=== PATIENT | male | born 1980 | race Caucasian/White ===

== ENCOUNTER 2019-12-19 15:08 | Outpatient (REF) | payer MEDICARE, MEDICAID, SELFPAY | END 2019-12-19 15:09 | disposition home or self-care (01) | LOC: HO.LAB 15:08 | PROVIDERS: Visit Provider Internal Medicine | DX: Z20.828 Contact with and (suspected) exposure to other viral communicable diseases (principal) | CPT/HCPCS: C9803; U0003 ==

== ENCOUNTER 2021-01-20 10:26 | Outpatient (REF) | payer MEDICARE, MEDICAID, SELFPAY ==
[2021-01-20 11:12] LABS: MANUAL DIFF FLAG NO
[2021-01-20 11:47] LABS: Basophils Percent Auto 0.3 % (0-2); Eosinophils Absolute Auto 0.1 X10*3/uL (0.0-0.4); Eosinophils Percent Auto 1.4 % (0-4); Hematocrit 45.8 % (42.0-52.0); Hemoglobin 15.2 g/dl (14.0-18.0); Imm Gran Abs Auto 0.03 X10*3/uL (0.00-0.03); Imm Gran Pct Auto 0.5 % (0.0-0.4); Lymphocytes Absolute Auto 2.1 X10*3/uL (1.2-4.9); Lymphocytes Percent Auto 35.9 % (20-40); Mean Corpuscular HGB Conc 33.2 g/dl (31.0-36.0); Mean Corpuscular Hemoglobin 29.8 pg (27.0-33.0); Mean Corpuscular Volume 89.8 fL (80.0-98.0); Mean Platelet Volume 9.4 fL (9.4-12.4); Monocytes Absolute Auto 0.5 X10*3/uL (0.1-1.2); Monocytes Percent Auto 8.9 % (2-11); Neutrophils Absolute Auto 3.1 x10*3/uL (2.0-8.3); Platelet Count 275 X10*3/uL (160-400); Red Cell Distribution Width 13.1 % (11.0-16.0); White Blood Count 5.8 X10*3/uL (4.8-10.8)
[2021-01-20 11:53] LABS: Appearance Urine CLEAR; Color Urine YELLOW; Glucose Urine UA NEG (NEG); Leukocyte Esterase Urine NEG (NEG); Nitrite Urine NEG (NEG); PH 8.5 (5.0-8.0); Specific Gravity - Urine 1.015 (1.005-1.025); Urine Blood NEG (NEG); Urine Ketones NEG (NEG); Urine Protein NEG (NEG-TRACE)
[2021-01-20 12:08] LABS: Valproate 67.9 mcg/mL (50.0-100.0)
[2021-01-20 12:21] LABS: Alanine Aminotransferase 30 U/L (0-40); Albumin Level 4.2 g/dL (3.5-5.0); Alkaline Phosphatase 59 U/L (39-117); Anion Gap 12 (12-20); Aspartate Amino Transferase 24 U/L (5-37); Bilirubin Total 0.4 mg/dL (0.0-1.0); Blood Urea Nitrogen 10 mg/dL (9-16); Calcium 9.7 mg/dL (8.4-10.2); Carbon Dioxide 32 mmol/L (22-29); Chloride 101 mmol/L (96-108); Cholesterol 219 mg/dL; Estimated Glomerular Filt Rate > 60; Glucose Random 81 mg/dL (60-115); HDL Cholesterol 35 mg/dL; LDL Cholesterol Calculated 142 mg/dl; Potassium 5.7 mmol/L (3.3-5.1); Sodium 139 mmol/L (135-145); Total Protein 7.4 g/dL (6.5-8.0); Triglycerides 212 mg/dL
[2021-01-20 12:26] LABS: Free T4 (Free Thyroxine) 0.92 ng/dL (0.71-1.85); Thyroid Stimulating Hormone 2.07 uIU/mL (0.32-4.0); Vitamin D 25-OH Total 24.3 ng/mL (>30)
[2021-01-20 12:28] LABS: Estimated Average Glucose 103 mg/dL; Hemoglobin A1C 148.6286 umol/L; Hemoglobin A1c % 5.2 %
== END 2021-01-20 10:27 | disposition home or self-care (01) ==
LOC: HO.LAB 10:26
PROVIDERS: PCP Internal Medicine; Visit Provider Internal Medicine
DX: E66.09 Other obesity due to excess calories (principal); I49.01 Ventricular fibrillation; E78.00 Pure hypercholesterolemia, unspecified; R73.01 Impaired fasting glucose; G93.1 Anoxic brain damage, not elsewhere classified; Z86.74 Personal history of sudden cardiac arrest; Z68.35 Body mass index [BMI] 35.0-35.9, adult
CPT/HCPCS: 36415; 80053; 80061; 80164; 81003; 82306; 83036; 84439; 84443; 85025

== ENCOUNTER 2021-02-02 11:41 | Outpatient (REF) | payer MEDICARE, MEDICAID, SELFPAY | END 2021-02-02 11:42 | disposition home or self-care (01) | LOC: HO.HMGCLDS 11:41 | PROVIDERS: Visit Provider Internal Medicine | DX: Z20.822 Contact with and (suspected) exposure to COVID-19 (principal) | CPT/HCPCS: C9803; U0003; U0005 ==

== ENCOUNTER 2021-07-07 09:06 | Outpatient (REF) | payer MEDICARE, MEDICAID, SELFPAY ==
[2021-07-07 09:44] LABS: MANUAL DIFF FLAG NO
[2021-07-07 10:06] LABS: Basophils Percent Auto 0.6 % (0-2); Eosinophils Absolute Auto 0.1 X10*3/uL (0.0-0.4); Eosinophils Percent Auto 1.2 % (0-4); Hemoglobin 13.9 g/dl (14.0-18.0); Imm Gran Abs Auto 0.02 X10*3/uL (0.00-0.03); Imm Gran Pct Auto 0.4 % (0.0-0.4); Lymphocytes Absolute Auto 1.8 X10*3/uL (1.2-4.9); Mean Corpuscular HGB Conc 33.1 g/dl (31.0-36.0); Mean Corpuscular Hemoglobin 29.5 pg (27.0-33.0); Mean Corpuscular Volume 89.2 fL (80.0-98.0); Mean Platelet Volume 9.7 fL (9.4-12.4); Monocytes Absolute Auto 0.5 X10*3/uL (0.1-1.2); Monocytes Percent Auto 9.7 % (2-11); Neutrophils Absolute Auto 2.6 x10*3/uL (2.0-8.3); Neutrophils Percent Auto 52.1 % (45-73); Platelet Count 264 X10*3/uL (160-400); Red Blood Count 4.71 X10*6/uL (4.60-5.80); Red Cell Distribution Width 13.2 % (11.0-16.0); White Blood Count 5.1 X10*3/uL (4.8-10.8)
[2021-07-07 10:36] LABS: Estimated Average Glucose 105 mg/dL; Hemoglobin A1C 129.2779 umol/L; Hemoglobin A1c % 5.3 %
[2021-07-07 10:45] LABS: Alanine Aminotransferase 28 U/L (0-40); Alkaline Phosphatase 55 U/L (39-117); Anion Gap 12 (12-20); Aspartate Amino Transferase 21 U/L (5-37); Bilirubin Total 0.6 mg/dL (0.0-1.0); Blood Urea Nitrogen 8 mg/dL (9-16); Calcium 9.4 mg/dL (8.4-10.2); Carbon Dioxide 30 mmol/L (22-29); Chloride 102 mmol/L (96-108); Cholesterol 196 mg/dL; Estimated Glomerular Filt Rate > 60; Glucose Random 86 mg/dL (60-115); HDL Cholesterol 33 mg/dL; LDL Cholesterol Calculated 110 mg/dl; Potassium 4.7 mmol/L (3.3-5.1); Sodium 139 mmol/L (135-145); Total Protein 7.1 g/dL (6.5-8.0); Triglycerides 265 mg/dL
[2021-07-07 10:52] LABS: Thyroid Stimulating Hormone 1.11 uIU/mL (0.32-4.0)
== END 2021-07-07 09:07 | disposition home or self-care (01) ==
LOC: HO.LAB 09:06
PROVIDERS: PCP Internal Medicine; Visit Provider Nurse Practitioner Psychiatric/Mental Health
DX: F31.9 Bipolar disorder, unspecified (principal); Z79.899 Other long term (current) drug therapy
CPT/HCPCS: 36415; 80053; 80061; 80164; 83036; 84443; 85025

== ENCOUNTER 2023-09-28 08:59 | Outpatient (REF) | payer MEDICARE, MEDICAID, SELFPAY ==
[2023-09-28 12:29] LABS: Valproate 64.9 mcg/mL (50.0-100.0)
[2023-09-28 12:34] LABS: Alanine Aminotransferase 16 U/L (0-40); Albumin Level 4.1 g/dL (3.5-5.0); Alkaline Phosphatase 51 U/L (39-117); Aspartate Amino Transferase 18 U/L (5-37); Bilirubin Direct 0.2 mg/dL (0.0-0.5); Bilirubin Total 0.5 mg/dL (0.0-1.0); Total Protein 7.5 g/dL (6.5-8.0)
== END 2023-09-28 09:00 | disposition home or self-care (01) ==
LOC: HO.LAB 08:59
PROVIDERS: Visit Provider General Practice
DX: Z79.899 Other long term (current) drug therapy (principal)
CPT/HCPCS: 36415; 80076; 80164

== ENCOUNTER 2023-10-11 08:19 | Emergency (ER) | payer MEDICARE, MEDICAID, SELFPAY ==
[2023-10-11 08:24] VITALS: BP 148/99; PULSE 81; RESP 19; TEMP 36.6; O2SAT 98; BMI 32.3
--- NOTE | 2023-10-11 08:58 | ED.HEATRA ---
HPI - Head Injury General Chief complaint: Head Injury Stated complaint: Head lac Time Seen by Provider: 10/11/23 08:30 Source: patient and family Mode of arrival: ambulatory Limitations: no limitations History of Present Illness ED Provider: Pankaj Mejía PA-C HPI Narrative: 43-year-old male presents to the ER for evaluation of a laceration on his forehead after he tripped and fell while taking out the garbage this morning. Patient states he tripped on the sidewalk, hitting his head, sustaining a superficial, approximately 3 in laceration to the center of his forehead. No active bleeding on arrival. Patient denies any loss of consciousness. He denies any headache. He is not on anticoagulation. No dizziness or shortness of breath, chest pain prior to falling. He denies any neck pain, chest pain or abdominal pain. MD Complaint: head injury Onset (ago): minute(s) Mechanism of Injury: fall Place: home Loss of Consciousness: no Location of injury: face Radiation: none Other Injuries: none Associated symptoms: denies other symptoms Related Data Home Medications ?Medication ?Instructions ?Recorded ?Confirmed divalproex 500 mg tablet,extended 500 mg PO TID 02/02/21 release 24 hr olanzapine 10 mg tablet 10 mg PO BEDTIME 02/02/21 Previous Rx's ?Medication ?Instructions ?Recorded imiquimod 5 % topical cream packet 1 appl topical 5XW #24 ea 02/02/21 Allergies Allergy/AdvReac Type Severity Reaction Status Date / Time amiodarone [Amiodarone] Allergy Unknown UNKNOWN Verified 10/11/23 08:26 phenobarbital [Phenobarbital] Allergy Unknown RASH Verified 10/11/23 08:26 phenytoin [Dilantin] Allergy Unknown rash Verified 10/11/23 08:26 From Dilantin Allergy Unknown RASH Uncoded 10/11/23 08:26 Review of Systems Review of Systems: Yes all other systems are reviewed and are negative PMFSH Social History Social History Patient Tobacco Use Status: Former Tobacco user Advance Directives: Yes Advance Directives Information Provided: Yes Advance Directives on File: No Do you have a plan to hurt others: No Plan Physical Exam Vital Signs: Vital Signs: Last Vital Signs Temp 98 F 10/11/23 08:24 Pulse 81 10/11/23 08:24 Resp 19 10/11/23 08:24 BP 148/99 H 10/11/23 08:24 Pulse Ox 98 10/11/23 08:24 O2 Del Method Room Air 10/11/23 08:24 BMI result Body Mass Index 32.3 Appearance: Alert. Oriented X3. No acute distress. Head: normocephalic, there is a superficial, linear, approximately 2.5 in laceration across the center of the forehead, mild oozing. Wound is well approximated and very superficial Eyes: Pupils equal, round and reactive to light. ENT: Pharynx normal. No tonsillar swelling or exudate. Neck: Normal inspection. Neck supple. No midline tenderness CVS: Normal heart rate and rhythm. Pulses normal. Respiratory: No respiratory distress. Breath sounds normal. Abdomen: Soft and nontender. +BS x4 Skin: Skin warm and dry. Normal skin color. Normal skin turgor. No rashes. Extremities: No lower extremity edema. No joint swelling. Neuro/psych: Oriented X 3. No motor deficit. No sensory deficit. Steady gait CN II-XII intact. Normal speech and cognition. Medical Decision Making Medical Decision Making MDM Narrative: 43-year-old male presents to the ER for evaluation of a superficial laceration to his head after he tripped and fell while bringing out the garbage this morning. No loss of consciousness. He is on anticoagulation. He is neurologically intact and has no complaints. No headache. Wound was very superficial, was cleansed with normal saline and able to be reapproximated with Exofin skin glue and Steri-Strips. Wound care was discussed with patient and family member at the bedside. No need for imaging today given his exam and lack of complaints. He is stable for discharge home Differential Diagnosis Differential Diagnoses: The differential diagnosis associated with the presentation includes Superficial laceration, deep laceration, concussion, very low clinical suspicion for any intracranial hemorrhage Independent Historian Clinical information obtained from an independent historian. History obtained from or confirmed by: Other External Record Review External record reviewed: Outpatient record and Prior outpatient labs Tests considered The following testing was considered but not selected: CT of the head was considered however not clinically indicated today Prescription Management I considered prescription management with: Pain Medication Procedures Laceration Laceration 1: Site: face Size (cm): 4 Description: linear Depth: simple, single layer Pre-repair: wound explored, irrigated extensively and deep structures intact Skin layer closed with: other (skin glue and steri strips x3) Critical Care Time Critical Care Time Critical Care Time: No Discharge Plan Discharge Clinical Impression: Laceration of head Qualifiers: Encounter type: initial encounter Location of open wound of head: scalp Foreign body presence: without foreign body Qualified Code(s): S01.01XA - Laceration without foreign body of scalp, initial encounter Patient Disposition: Home, Self-Care Instructions: Head Laceration (ED) Additional Instructions: Skin glue and Steri-Strips were used to close the wound today. These will come off on their own, usually in a week. Do not peel the Steri-Strips off, when the edges start to ilia, trim them Do not get the wound wet for at least 24 hours. If you develop new or worsening symptoms call 911 or come back to the ER for further evaluation. Prescriptions: No Action divalproex 500 mg tablet extended release 24 hr 500 mg PO TID olanzapine 10 mg tablet 10 mg PO BEDTIME imiquimod 5 % cream in packet 1 appl topical 5XW Qty: 24 1RF Print Language: Bangladeshi
[2023-10-11 09:16] VITALS: BP 148/99; PULSE 81; RESP 19; TEMP 36.6; O2SAT 98
== END 2023-10-11 09:17 | disposition home or self-care (01) ==
PROVIDERS: Emergency Provider Emergency Medicine; PCP Internal Medicine
DX: S01.01XA Laceration without foreign body of scalp, initial encounter (principal); R51.9 Headache, unspecified; W01.10XA Fall on same level from slipping, tripping and stumbling with subsequent striking against unspecified object, initial encounter; Y93.89 Activity, other specified; Y92.89 Other specified places as the place of occurrence of the external cause; Y99.8 Other external cause status
CPT/HCPCS: 12002; 99282; 99284

== ENCOUNTER 2023-10-14 23:16 | Emergency (ER) | payer MEDICARE, MEDICAID, SELFPAY ==
[2023-10-14 23:25] VITALS: BP 141/97; PULSE 90; RESP 16; TEMP 37.2; O2SAT 95; BMI 25.1
--- NOTE | 2023-10-15 00:28 | ED.GENADULT ---
HPI - General Adult General Chief complaint: Skin/Abscess/Foreign Body Stated complaint: poison fernando near eyes Time Seen by Provider: 10/14/23 23:46 Source: patient Limitations: no limitations History of Present Illness ED Provider: Susanna Ward PA-C HPI narrative: 43-year-old male presents with concern for poison fernando near his eye. Patient actually states he fell a week ago, sustaining a superficial laceration to his forehead. He has bruising at the corner of each eye and underneath the eyes. Related Data Home Medications ?Medication ?Instructions ?Recorded ?Confirmed divalproex 500 mg tablet,extended 500 mg PO TID 02/02/21 release 24 hr olanzapine 10 mg tablet 10 mg PO BEDTIME 02/02/21 Previous Rx's ?Medication ?Instructions ?Recorded imiquimod 5 % topical cream packet 1 appl topical 5XW #24 ea 02/02/21 Allergies Allergy/AdvReac Type Severity Reaction Status Date / Time amiodarone [Amiodarone] Allergy Unknown UNKNOWN Verified 10/14/23 23:26 phenobarbital [Phenobarbital] Allergy Unknown RASH Verified 10/14/23 23:26 phenytoin [Dilantin] Allergy Unknown rash Verified 10/14/23 23:26 From Dilantin Allergy Unknown RASH Uncoded 10/14/23 23:26 Review of Systems Review of Systems: Yes all other systems are reviewed and are negative Eyes: Eyes: Denies eye pain Integumentary/Breasts: Skin/Breast: Denies pruritus, Denies lesions and Denies rash PMFSH Past Medical History Attestation statement: The following information was validated with the patient. Social History Social History Patient Tobacco Use Status: Former Tobacco user Advance Directives: No Advance Directives Information Provided: Yes Do you have a plan to hurt others: No Plan Physical Exam ED Vital Signs: Vital Signs - 24 hr 10/14/23 23:25 Temperature 98.9 F Pulse Rate 90 Respiratory Rate 16 Blood Pressure 141/97 H Pulse Oximetry 95 Oxygen Delivery Method Room Air BMI result Body Mass Index 25.1 Const Other: Awake, healing superficial laceration that is linear across central forehead, almost healed, overlying surgical glue noted that is still intact Orientation/consciousness: patient oriented x3 Eyes Other: Bilateral periorbital ecchymosis that is old and fading noted Resp Effort & Inspection: normal respiratory effort Cardio Other: Normal peripheral perfusion Skin Other: Warm dry no rash, there are no lesions on the face that are consistent with a contact dermatitis such as poison fernando Neuro General: patient oriented x3, no focal motor deficits and CN's II-XI intact bilaterally Psych Other: Cooperative Medical Decision Making Medical Decision Making [facility] Narrative: 43-year-old male presents with concern for poison fernando near his eye. Patient actually states he fell a week ago, sustaining a superficial laceration to his forehead. He has bruising at the corner of each eye and underneath the eyes. No relevant chronic issues History: Per patient I have considered the following differential diagnoses: Contact dermatitis, shingles, eczema, bilateral periorbital ecchymosis Plan: The patient does not have a rash at all, he has old evidence of periorbital ecchymosis from his fall. Nothing to do. The patient is walking out without his discharge instructions Discharge Plan Discharge Clinical Impression: Periorbital ecchymosis of left eye, Periorbital ecchymosis of right eye Patient Disposition: Home, Self-Care Prescriptions: No Action divalproex 500 mg tablet extended release 24 hr 500 mg PO TID olanzapine 10 mg tablet 10 mg PO BEDTIME imiquimod 5 % cream in packet 1 appl topical 5XW Qty: 24 1RF Print Language: Kinyarwanda
--- NOTE | 2023-10-15 00:36 | PC.NURSE ---
went in to see pt, and he has left, he was being d/c, he left without instructions
[2023-10-15 00:38] VITALS: BP 141/97; PULSE 90; RESP 16; TEMP 37.2; O2SAT 95
== END 2023-10-15 00:40 | disposition home or self-care (01) ==
PROVIDERS: Emergency Provider Internal Medicine; PCP Internal Medicine
DX: S00.12XA Contusion of left eyelid and periocular area, initial encounter (principal); S00.11XA Contusion of right eyelid and periocular area, initial encounter; W18.30XA Fall on same level, unspecified, initial encounter; Y93.9 Activity, unspecified; Y92.9 Unspecified place or not applicable; Y99.9 Unspecified external cause status
CPT/HCPCS: 99282

== ENCOUNTER 2024-05-08 16:50 | Emergency (ER) | payer MEDICARE, MEDICAID, SELFPAY ==
--- NOTE | ~2024-05-08 | XR_ITS ---
CLINICAL HISTORY: fall 3 view bilateral hand Comparison: None Findings: Bones intact. No dislocations. No significant arthritic change. No erosions. No radiopaque foreign body. IMPRESSION: 1. No acute findings This document has been electronically signed by: Markus Roach MD on 05/08/2024 17:57:52
[2024-05-08 17:24] VITALS: BP 134/97; PULSE 93; RESP 16; TEMP 36.9; O2SAT 99; BMI 24.9
--- NOTE | 2024-05-08 17:24 | ED_ITS ---
HPI - General Adult General Chief complaint: Wound/Laceration Stated complaint: Fall/ hand pain Time Seen by Provider: 05/08/24 19:07 Source: patient Mode of arrival: ambulatory Limitations: no limitations History of Present Illness ED Provider: Mechelle Aguilar NP HPI narrative: Patient is a 44-year-old male who presents emergency department for evaluation he reports a mechanical slip and fall yesterday when taking the trash out, he sustained abrasions to the distal tips of the fingers in the bilateral hands, dorsal aspect. He denies any head strike or loss of consciousness. No use of anticoagulants or known coagulation disorders. No active bleeding. There are dried stabs over the abrasions. Related Data Home Medications ?Medication ?Instructions ?Recorded ?Confirmed divalproex 500 mg tablet,extended 500 mg PO TID 02/02/21 release 24 hr olanzapine 10 mg tablet 10 mg PO BEDTIME 02/02/21 Previous Rx's ?Medication ?Instructions ?Recorded imiquimod 5 % topical cream packet 1 appl topical 5XW #24 ea 02/02/21 bacitracin 500 unit/gram topical 1 appl topical BID #144 ea 05/08/24 packet Allergies Allergy/AdvReac Type Severity Reaction Status Date / Time amiodarone [Amiodarone] Allergy Unknown UNKNOWN Verified 05/08/24 17:30 phenobarbital [Phenobarbital] Allergy Unknown RASH Verified 05/08/24 17:30 phenytoin [Dilantin] Allergy Unknown rash Verified 05/08/24 17:30 From Dilantin Allergy Unknown RASH Uncoded 05/08/24 17:30 Review of Systems Review of Systems: Yes all other systems are reviewed and are negative [facility] Past Medical History Attestation statement: The following information was validated with the patient. Source: old records reviewed Social History Social History Patient Tobacco Use Status: Former Tobacco user Advance Directives: No Advance Directives Information Provided: No Do you have a plan to hurt others: No Plan Physical Exam ED Vital Signs: Vital Signs - 24 hr 05/08/24 17:24 05/08/24 19:13 Temperature 98.5 F 98.1 F Pulse Rate 93 90 Respiratory Rate 16 16 Blood Pressure 134/97 H 128/79 Pulse Oximetry 99 100 Oxygen Delivery Method Room Air Room Air BMI result Body Mass Index 24.9 Appearance: Alert.?Oriented to person, place and time. No acute distress.?Normal affect. Eyes: Pupils equal, round and reactive to light.? ENT: Pharynx normal.?? Neck: Normal inspection.? Neck supple.?? CVS: Heart sounds normal. Normal heart rate and rhythm.? Pulses normal.?? Respiratory: No respiratory distress.? Lung sounds clear to auscultation bilaterally?? Skin/ extremities: Skin warm and dry.? Normal skin color.? Dorsal distal tips of the bilateral fingers with superficial abrasions scabbed over without active bleeding, no surrounding erythema warmth or fluctuance. Full range of motion to the fingers of the bilateral hands.?? Neuro: Moves all extremities spontaneously. Sensation intact bilaterally. Ambulates with normal steady gait. Course Course Course Narrative: This is an RME: Additional HPI, ROS, PE not included below will be deferred to primary provider. RME assessment and note performed by: Bambi Ayala PA-C This is a 21-onut-dbf-male, with a hx of seizure disorder, who presents to the ER with a complaint of bilateral hand pain s/p fall. Pt reports that he tripped and fell yesterday and scraped his bilateral hands on the concrete. Pt with wounds noted to multiple digits, no active bleeding, TTP. Family here with patient reporting no changes in mentation and he is acting at his baseline. Plan: xrays to r/o bony abnormality Medical Decision Making Medical Decision Making MDM Narrative: Patient is a 44-year-old male presents emergency department for evaluation of superficial abrasions to the bilateral distal fingertips sustained from maxillary scraping against the concrete yesterday as per HPI. There was no head strike or loss of consciousness with this fall, unlikely to have ICH, SDH, would defer CT imaging. XR was obtained of the bilateral hands there is no acute osseous abnormality no fracture dislocation. Full range of motion. Ex tremities are neurovascularly intact distally. There is no evidence of surrounding cellulitis. Reviewed conservative wound treatment, bacitracin, and worrisome signs and symptoms that would warrant re-evaluation. All questions answered. Tetanus vaccine was updated today, unaware date of last vaccination. Outpatient follow-up with PCP. Differential Diagnosis Differential Diagnoses: The differential diagnosis associated with the presentation includes (See narrative above) Independent Interpretation I performed an independent interpretation of an: Plain X-Ray (See narrative above) Radiology Impression Discussion of test interpretation with radiology: I have reviewed the radiologist's reading. Radiologist Impression: 3 view bilateral hand Comparison: None Findings: Bones intact. No dislocations. No significant arthritic change. No erosions. No radiopaque foreign body. IMPRESSION: 1. No acute findings Independent Historian Clinical information obtained from an independent historian. History obtained from or confirmed by: Parent External Record Review External record reviewed: Outpatient record Prescription Management I considered prescription management with: Antibiotic Discharge Plan Discharge Clinical Impression: Abrasion of finger of left hand, Abrasion of finger of right hand Patient Disposition: Home, Self-Care Instructions: Abrasion (ED) Additional Instructions: As discussed, x-ray images do not show evidence of any broken bone or dislocation which is reassuring. The abrasion on your fingers can be cleaned twice a day with warm water and mild non scented soap, apply bacitracin ointment, and cover with a bandage. Follow up with your primary care doctor. If you notice increasing pain, redness, swelling, pus-like discharge, fevers, chills, inability to move the fingers and you should seek re-evaluation promptly. Prescriptions: New bacitracin 500 unit/gram packet 1 appl topical BID Qty: 144 0RF No Action divalproex 500 mg tablet extended release 24 hr 500 mg PO TID olanzapine 10 mg tablet 10 mg PO BEDTIME imiquimod 5 % cream in packet 1 appl topical 5XW Qty: 24 1RF Referrals: Todd Portillo MD [Primary Care Provider] - Print Language: Upper Sorbian
[2024-05-08 19:13] VITALS: BP 128/79; PULSE 90; RESP 16; TEMP 36.7; O2SAT 100
[2024-05-08] MEDS: Diphth,Pertus(ACell),Tet Adult 0.5 ML SYRINGE IM (19:45)
[2024-05-08] MEDS: Bacitracin Oint 0.9 GM PACKET 1 APPL TOPICAL (19:45)
[2024-05-08 19:57] VITALS: BP 128/79; PULSE 90; RESP 16; TEMP 36.7; O2SAT 100
== END 2024-05-08 19:57 | disposition home or self-care (01) ==
PROVIDERS: Emergency Provider Emergency Medicine; PCP Internal Medicine
DX: S60.512A Abrasion of left hand, initial encounter (principal); S60.511A Abrasion of right hand, initial encounter; W01.0XXA Fall on same level from slipping, tripping and stumbling without subsequent striking against object, initial encounter; Y93.E9 Activity, other interior property and clothing maintenance; Y92.019 Unspecified place in single-family (private) house as the place of occurrence of the external cause; Y99.9 Unspecified external cause status; Z23 Encounter for immunization
CPT/HCPCS: 73120; 90471; 90715; 99282; 99284

== ENCOUNTER → 2024-05-08 17:31 | Outpatient (BNV) | payer MEDICARE, MEDICAID, SELFPAY | PROVIDERS: PCP Internal Medicine; Visit Provider Radiology Diagnostic Radiology | DX: S60.418A Abrasion of other finger, initial encounter (principal); W19.XXXA Unspecified fall, initial encounter | CPT/HCPCS: 73120 ==

== ENCOUNTER 2024-05-24 07:10 | Outpatient (REF) | payer MEDICARE, MEDICAID, SELFPAY ==
[2024-05-24 07:30] LABS: MANUAL DIFF FLAG NO
[2024-05-24 07:53] LABS: Estimated Average Glucose 103 mg/dL; Hemoglobin A1C 127.8625 umol/L; Hemoglobin A1c % 5.2 % (<6.0)
[2024-05-24 07:56] LABS: Basophils Percent Auto 0.5 % (0-2); Eosinophils Absolute Auto 0.1 X10*3/uL (0.0-0.4); Eosinophils Percent Auto 1.8 % (0-4); Hematocrit 44.8 % (42.0-52.0); Hemoglobin 14.5 g/dl (14.0-18.0); Imm Gran Abs Auto 0.02 X10*3/uL (0.00-0.03); Imm Gran Pct Auto 0.3 % (0.0-0.4); Lymphocytes Absolute Auto 2.3 X10*3/uL (1.2-4.9); Lymphocytes Percent Auto 38.3 % (20-40); Mean Corpuscular HGB Conc 32.4 g/dl (31.0-36.0); Mean Corpuscular Hemoglobin 28.7 pg (27.0-33.0); Mean Corpuscular Volume 88.7 fL (80.0-98.0); Mean Platelet Volume 9.1 fL (9.4-12.4); Monocytes Absolute Auto 0.5 X10*3/uL (0.1-1.2); Neutrophils Percent Auto 50.1 % (45-73); Platelet Count 317 X10*3/uL (160-400); Red Blood Count 5.05 X10*6/uL (4.60-5.80); Red Cell Distribution Width 13.8 % (11.0-16.0)
[2024-05-24 09:20] LABS: Alanine Aminotransferase 22 U/L (0-40); Albumin Level 4.4 g/dL (3.5-5.0); Anion Gap 12 (12-20); Aspartate Amino Transferase 29 U/L (5-37); Bilirubin Total 0.7 mg/dL (0.0-1.0); Blood Urea Nitrogen 12 mg/dL (9-16); Calcium 9.5 mg/dL (8.4-10.2); Carbon Dioxide 30 mmol/L (22-29); Chloride 103 mmol/L (96-108); Cholesterol 197 mg/dL (<200); Estimated Glomerular Filt Rate > 60; Glucose Random 86 mg/dL (60-115); HDL Cholesterol 39 mg/dL (>40); LDL Cholesterol Calculated 137 mg/dL (<100); Potassium 4.2 mmol/L (3.3-5.1); Sodium 141 mmol/L (135-145); Triglycerides 105 mg/dL (<150)
[2024-05-24 09:43] LABS: Thyroid Stimulating Hormone 2.45 uIU/mL (0.32-4.0)
[2024-05-24 09:53] LABS: Alkaline Phosphatase 60 U/L (39-117)
== END 2024-05-24 07:11 | disposition home or self-care (01) ==
LOC: HO.LAB 07:10
PROVIDERS: Visit Provider Internal Medicine
DX: E78.2 Mixed hyperlipidemia (principal); R73.01 Impaired fasting glucose; G93.1 Anoxic brain damage, not elsewhere classified; Z86.74 Personal history of sudden cardiac arrest
CPT/HCPCS: 36415; 80053; 80061; 83036; 84443; 85025

== ENCOUNTER 2024-07-23 11:13 | Outpatient (REF) | payer MEDICARE, MEDICAID, SELFPAY ==
--- OUTSIDE RECORDS SUMMARY | 2024-07-23 12:48 | XMS_ITS | Encounter Summary ---
Author Organization [employer] Address [address] [place] [address] Care Team Providers Care Bill Cutter Name Role Phone Unavailable Primary Care Provider Unavailabl e Encounter Details Date Type Department Care Team (Latest Contact Info) Description 07/01/2020 Abstract C CONVERSIONS Dental, Provider, DDS Social History Tobacco Use Types Packs/Day Years Used Date Smoking Tobacco: Never Assessed Sex and Gender Information Value Date Recorded Sex Assigned at Male 12/07/2021 10:24 AM EDT Legal Sex Male 10:24 AM EDT Gender Identity Male 12/07/2021 10:24 AM EDT Sexual Orientation Choose not to disclose 2021 10:24 AM EDT documented as of this encounter Plan of Treatment Not on file documented as of this encounter Visit Diagnoses Not on filedocumented in this encounter
[2024-07-23 13:58] LABS: Valproate 17.2 mcg/mL (50.0-100.0)
[2024-07-23 14:04] LABS: Alanine Aminotransferase 18 U/L (0-40); Albumin Level 4.4 g/dL (3.5-5.0); Alkaline Phosphatase 57 U/L (39-117); Aspartate Amino Transferase 23 U/L (5-37); Bilirubin Direct 0.2 mg/dL (0.0-0.5); Bilirubin Total 0.5 mg/dL (0.0-1.0); Total Protein 7.5 g/dL (6.5-8.0)
== END 2024-07-23 11:14 | disposition home or self-care (01) ==
LOC: HO.HMGCLDS 11:13
PROVIDERS: PCP Internal Medicine; Visit Provider General Practice
DX: Z79.899 Other long term (current) drug therapy (principal)
CPT/HCPCS: 36415; 80076; 80164

== ENCOUNTER 2024-11-13 11:33 | Outpatient (REF) | payer MEDICARE, MEDICAID, SELFPAY ==
[2024-11-13 12:56] LABS: Alanine Aminotransferase 20 U/L (0-40); Albumin Level 4.5 g/dL (3.5-5.0); Alkaline Phosphatase 54 U/L (39-117); Aspartate Amino Transferase 23 U/L (5-37); Total Protein 7.6 g/dL (6.5-8.0)
--- OUTSIDE RECORDS SUMMARY | 2024-11-13 14:41 | XMS_ITS | Encounter Summary ---
Author Organization [facility] [employer] Address [address] [place] [address] Care Team Providers Care Linseed Oil Temperer Name Role Phone Unavailable Primary Care Provider Unavailabl e Encounter Details Date Type Department Care Team (Latest Contact Info) Description 08/30/2018 Abstract C CONVERSIONS Dental, Provider, DDS Social [...]
--- OUTSIDE RECORDS SUMMARY | 2024-11-13 14:41 | XMS_ITS | Clinical Summary ---
Author Organization [employer] Address [address] [place] [address] Care Team Providers Care Legal Instruments Examiner Name Role Phone Unavailable Primary Care Provider Unavailabl e Social History Tobacco Use Types Packs/Day Years Used Date Smoking Tobacco: Never Assessed Sex and Gender Information Value Date Recorded Sex Assigned at Male 12/07/2021 10:24 AM EDT Legal Sex Male 10:24 AM EDT Gender Identity Male 12/07/2021 10:24 AM EDT Sexual Orientation Choose not to disclose 2021 10:24 AM EDT Plan of Treatment Health Maintenance Due Date Last Done Comments CT Colonography 1978 Colonoscopy 1978 Colorectal Cancer Screening 1978 Depression Screening 1978 FIT DNA/Cologuard 1978 FIT 1978 FOBT 1978 Lipid Panel 1978 Sigmoidoscopy 1978 Disability Screening 1978 Alcohol/Substance Use Screening 1990 Tobacco Screening 1990 Family Planning (PISQ) 1993 DTaP/Tdap/Td Vaccines (1 - Tdap) 1997 Hepatitis B Vaccines (1 of 3 - 19+ 3-dose series) 1997 COVID-19 Vaccine ( - 2023-2 5 season) 2024 Influenza Vaccine (#1) 2024 Zoster Vaccines (1 of 2) 2028 RSV Patients and Pa tients Aged 60 years or older (1 - 1-dose 75+ series) 2053 HIB Vaccines Aged Out No longer eligi ble based on patient's age to complete this topic HPV Vaccines Aged Out No longer eligi ble based on patient's age to complete this topic Hepatitis A Vaccines Aged Out No long er eligible based on patient's age to complete this topic IPV Vaccines Aged Out No longer eligi ble based on patient's age to complete this topic Meningococcal B Vaccine Aged Out No l onger eligible based on patient's age to complete this topic Meningococcal Vaccine Aged Out No princess ulysses eligible based on patient's age to complete this topic Pneumococcal Vaccine: Pediat rics (0 to 5 Years) and At-Risk Patients (6 to 49) Years Aged Out No longer eligible b ased on patient's age to complete this topic RSV under 20 months Aged Out No longe r eligible based on patient's age to complete this topic Rotavirus Vaccines Aged Out No longer eligible based on patient's age to complete this topic
--- OUTSIDE RECORDS SUMMARY | 2024-11-13 14:41 | XMS_ITS | Encounter Summary ---
Author Organization [employer] Address [address] [place] [address] Care Team Providers Care Marketing Operations Analyst Name Role Phone Unavailable Primary Care Provider [...]
== END 2024-11-13 11:34 | disposition home or self-care (01) ==
LOC: HO.LAB 11:33
PROVIDERS: PCP Internal Medicine; Visit Provider General Practice
DX: Z79.899 Other long term (current) drug therapy (principal)
CPT/HCPCS: 36415; 80076; 80164